=== PATIENT | male | born 1950 | race American Indian/Alaskan Native ===

== ENCOUNTER 2017-09-21 20:17 | Emergency (ER) | payer MEDICARE, OTHER, SELFPAY ==
[2017-09-21 20:34] VITALS: BP 215/98
[2017-09-21] MEDS ORDERED: Morphine 10 MG/ML Syringe IVPUSH ONE (20:53)
--- NOTE | 2017-09-21 20:58 | EDM.PDOC ---
ED HPI GENERAL MEDICAL PROBLEM - General Chief Complaint: Flank Pain Stated Complaint: KIDNEY PAIN Time Seen by Provider: 09/21/17 20:45 Source of Information: Reports: Patient, Family History Limitations: Reports: No Limitations - History of Present Illness INITIAL COMMENTS - FREE TEXT/NARRATIVE: 66-year-old male who takes over 130 mg of morphine daily for chronic pain and ran out of his morphine this morning and has not had a dose for 9 hours. He has worsening lower back pain, feels anxious, feels he can't breathe and has intense right paralumbar pain. He also feels his abdomen is bloated. No nausea or vomiting. right flank Pain Score (Numeric/FACES): 10 - Related Data Allergies Allergy/AdvReac Type Severity Reaction Status Date / Time cimetidine [From Tagamet] Allergy Hallucinati Verified 11/26/16 15:45 ons Home Meds: Home Meds Fenofibrate Nanocrystallized [Fenofibrate] 160 mg PO DAILY 10/08/14 [History] Lisinopril [Lisinopril] 20 mg PO DAILY 10/08/14 [History] Metoprolol Tartrate [Metoprolol Tartrate] 100 mg PO BID 10/08/14 [History] Morphine [MS Contin] 45 mg PO TID 10/08/14 [History] Omeprazole [Prilosec] 1 tab PO DAILY 10/08/14 [History] Triamterene/Hydrochlorothiazid [Triamterene-HCTZ 37.5-25 MG] 1 tab PO DAILY [History] metFORMIN [Glucophage] 500 mg PO BID 10/08/14 [History] Insulin Glargine,Hum.Rec.Anlog [Toujeo Solostar] 25 units SUBCUT BEDTIME [History] oxyCODONE 5 mg PO BEDTIME PRN 09/21/17 [History] Past Medical History Cardiovascular History: Reports: High Cholesterol, Hypertension Gastrointestinal History: Reports: Cholelithiasis Musculoskeletal History: Reports: Back Pain, Chronic, RA Psychiatric History: Reports: Addiction, Psych Hospitalization(s) Endocrine/Metabolic History: Reports: Diabetes, Type II - Past Surgical History HEENT Surgical History: Reports: Naso-Sinus Surgery GI Surgical History: Reports: Cholecystectomy, Hernia, Abdominal, Hernia Repair/ Other, Lysis of Adhesions, Small Bowel Musculoskeletal Surgical History: Reports: Shoulder Surgery Social & Family History - Tobacco Use Smoking Status *Q: Former Smoker Used Tobacco, but Quit: No - Caffeine Use Caffeine Use: Reports: None - Recreational Drug Use Recreational Drug Use: No ED ROS GENERAL - Review of Systems Review Of Systems: See Below Constitutional: Denies: Fever, Chills Respiratory: Reports: Pleuritic Chest Pain Cardiovascular: Denies: Chest Pain GI/Abdominal: Reports: Distension. Denies: Abdominal Pain : Reports: Flank Pain Musculoskeletal: Reports: Back Pain Skin: Reports: No Symptoms Psychiatric: Reports: Anxiety ED EXAM,LOWER BACK PAIN/INJURY - Physical Exam Exam: See Below Exam Limited By: No Limitations General Appearance: Alert, Mild Distress (Pacing around the room, very uncomfortable) Head: Atraumatic Respiratory/Chest: No Respiratory Distress, Lungs Clear Cardiovascular: Regular Rate, Rhythm GI/Abdominal: Normal Bowel Sounds, Soft Back Exam: Paraspinal Tenderness (Reacts with exquisite tenderness to palpation along the right paralumbar muscles) Course - Vital Signs Last Recorded V/S: Last Vital Signs Temp 98.8 F 09/21/17 20:43 Pulse 97 09/21/17 20:43 Resp 18 09/21/17 20:43 BP 215/98 H 09/21/17 20:43 Pulse Ox 97 09/21/17 20:43 - Orders/Labs/Meds Labs: Laboratory Tests 09/21/17 09/21/17 09/21/17 Range/Units 20:53 20:53 20:53 WBC 8.7 (4.5-11.0) K/uL RBC 5.77 (4.30-5.90) M/uL Hgb 13.4 (12.0-15.0) g/dL Hct 41.8 (40.0-54.0) % MCV 72 L (80-98) fL MCH 23 L (27-31) pg MCHC 32 (32-36) % Plt Count 311 (150-400) K/uL Neut % (Auto) 71 H (36-66) % Lymph % (Auto) 23 L (24-44) % [place] % (Auto) 5 (2-6) % Eos % (Auto) 1 L (2-4) % Baso % (Auto) 0 (0-1) % Sodium 134 L (140-148) mmol/L Potassium 3.9 (3.6-5.2) mmol/L Chloride 98 L (100-108) mmol/L Carbon Dioxide 28 (21-32) mmol/L Anion Gap 11.9 (5.0-14.0) mmol/L BUN 10 (7-18) mg/dL Creatinine 0.8 (0.8-1.3) mg/dL Est Cr Clr Drug Dosing 91.25 mL/min Estimated GFR (MDRD) > 60 (>60) Glucose 288 H (74-106) mg/dL Calcium 9.7 (8.5-10.1) mg/dL Total Bilirubin 0.4 (0.2-1.0) mg/dL AST 29 (15-37) U/L ALT 41 (12-78) U/L Alkaline Phosphatase 86 (46-116) U/L Total Protein 7.7 (6.4-8.2) g/dL Albumin 2.9 L (3.4-5.0) g/dL Globulin 4.8 H (2.3-3.5) g/dL Albumin/Globulin Ratio 0.6 L (1.2-2.2) Urine Color Yellow Urine Appearance Clear Urine pH 6.0 (4.5-8.0) Ur Specific [place] 1.020 (1.008-1.030) Urine Protein 100 H (NEGATIVE) mg/dL Urine Glucose (UA) 1000 H (NEGATIVE) mg/dL Urine Ketones Negative (NEGATIVE) mg/dL Urine Occult Blood Negative (NEGATIVE) Urine Nitrite Negative (NEGAITVE) Urine Bilirubin Negative (NEGATIVE) Urine Urobilinogen Normal (NORMAL) mg/dL Ur Leukocyte Esterase Negative (NEGATIVE) Urine RBC 0-5 (0-5) Urine WBC 0-5 (0-5) Ur Epithelial Cells Rare Amorphous Sediment Few Urine Bacteria Rare Urine Mucus Few Meds: Medications Discontinued Medications Generic Name Dose Route Start Last Admin Trade Name Jaimeq PRN Reason Stop Dose Admin Morphine Sulfate 5 mg 09/21/17 20:53 09/21/17 21:00 Morphine IVPUSH 09/21/17 20:54 5 mg ONETIME ONE Administration Morphine Sulfate 15 mg 09/21/17 21:51 09/21/17 22:06 Ms Contin PO 09/21/17 21:52 15 mg ONETIME ONE Administration Morphine Sulfate 15 mg 09/21/17 21:52 09/21/17 22:06 Ms Contin PO 09/21/17 21:53 15 mg ONETIME ONE Administration - Re-Assessments/Exams Free Text/Narrative Re-Assessment/Exam: 09/21/17 21:54 Patient admitted that he took his last morphine this morning. Labs were drawn, UA was checked and the patient was given 5 mg of IV morphine. When I came into the room to discuss his labs he appeared calm, still was complaining of some mild back discomfort but only removed. Blood pressure normalized. His glucose is 288, otherwise his labs were very reassuring. I agreed to give the patient 30 mg of extended release morphine that he could take tonight despite him being on a pain contract, and he can contact Dr. Bashir tomorrow to see if he can get his medication filled a day early. Departure - Departure Time of Disposition: 22:08 Disposition: Home, Self-Care 01 Condition: Fair Clinical Impression: Low back pain Qualifiers: Chronicity: acute Back pain laterality: right Sciatica presence: without sciatica Qualified Code(s): M54.5 - Low back pain Opioid dependence Qualifiers: Substance use status: in withdrawal Qualified Code(s): F11.23 - Opioid dependence with withdrawal - Discharge Information Instructions: Back Pain, Adult Referrals: Denny Bashir MD [Primary Care Provider] - Forms: ED Department Discharge Care Plan Goals: Take oral morphine before midnight. Contact your primary provider tomorrow morning about additional pain medications.
[2017-09-21] MEDS ORDERED: Morphine 15 MG Tab.ER PO ONE ×2 (21:51→21:52)
== END 2017-09-21 22:08 | disposition home or self-care (01) ==
LOC: JP.ED 20:17
DX: M54.5 Low back pain (principal); F11.23 Opioid dependence with withdrawal; I10 Essential (primary) hypertension; E78.00 Pure hypercholesterolemia, unspecified; E11.9 Type 2 diabetes mellitus without complications; Z87.891 Personal history of nicotine dependence; Z79.4 Long term (current) use of insulin; Z79.899 Other long term (current) drug therapy; Z88.8 Allergy status to other drugs, medicaments and biological substances
CPT/HCPCS: 36415; 80053; 81001; 85025; 96374; 99284; A9270; J2270

== ENCOUNTER 2017-09-29 12:24 | Observation (INO) | payer MEDICARE ==
[2017-09-29] MEDS ORDERED: Nitroglycerin 0.4 MG Tab.SL SL PRN ×2 (12:35→15:09)
[2017-09-29] MEDS ORDERED: Sodium Chloride 0.9% 10 ML Syringe FLUSH PRN ×2 (12:35→15:09)
[2017-09-29] MEDS ORDERED: Aspirin 81 MG Tab.Chew PO ONE (12:35)
--- NOTE | 2017-09-29 12:38 | EDM.PDOC ---
ED HPI GENERAL MEDICAL PROBLEM - General Stated Complaint: CHEST PRESSURE/PAIN Time Seen by Provider: 09/29/17 12:34 Source of Information: Reports: Patient, RN Notes Reviewed History Limitations: Reports: No Limitations - History of Present Illness INITIAL COMMENTS - FREE TEXT/NARRATIVE: 66-year-old gentleman presents emergency department today with a complaint of chest pain, he states the chest pain started yesterday has progressively gotten worse over the last 24 hours does have pain going into his left arm no shortness of breath no nausea vomiting he was diaphoretic upon presentation does admit to being under a lot of stress Chest Pain Score (Numeric/FACES): 7 - Related Data Allergies Allergy/AdvReac Type Severity Reaction Status Date / Time cimetidine [From [employer]] Allergy Hallucinati Verified 11/26/16 15:45 ons Home Meds: Home Meds Fenofibrate Nanocrystallized [Fenofibrate] 160 mg PO DAILY 10/08/14 [History] Lisinopril [Lisinopril] 20 mg PO DAILY 10/08/14 [History] Metoprolol Tartrate [Metoprolol Tartrate] 100 mg PO BID 10/08/14 [History] Morphine [MS Contin] 45 mg PO TID 10/08/14 [History] Omeprazole [Prilosec] 1 tab PO DAILY 10/08/14 [History] Triamterene/Hydrochlorothiazid [Triamterene-HCTZ 37.5-25 MG] 1 tab PO DAILY [History] metFORMIN [Glucophage] 500 mg PO BID 10/08/14 [History] Insulin Glargine,Hum.Rec.Anlog [Toujeo Solostar] 25 units SUBCUT BEDTIME [History] oxyCODONE 5 mg PO BEDTIME PRN 09/21/17 [History] Past Medical History Cardiovascular History: Reports: High Cholesterol, Hypertension Gastrointestinal History: Reports: Cholelithiasis Musculoskeletal History: Reports: Back Pain, Chronic, RA Psychiatric History: Reports: Addiction, Psych Hospitalization(s) Endocrine/Metabolic History: Reports: Diabetes, Type II - Past Surgical History HEENT Surgical History: Reports: Naso-Sinus Surgery GI Surgical History: Reports: Cholecystectomy, Hernia, Abdominal, Hernia Repair/ Other, Lysis of Adhesions, Small Bowel Musculoskeletal Surgical History: Reports: Shoulder Surgery Social & Family History - Tobacco Use Smoking Status *Q: Former Smoker Used Tobacco, but Quit: No - Caffeine Use Caffeine Use: Reports: None - Recreational Drug Use Recreational Drug Use: No ED ROS GENERAL - Review of Systems Review Of Systems: See Below Constitutional: Reports: Diaphoresis HEENT: Reports: No Symptoms Respiratory: Reports: No Symptoms Cardiovascular: Reports: Chest Pain GI/Abdominal: Reports: No Symptoms : Reports: No Symptoms Musculoskeletal: Reports: No Symptoms Skin: Reports: No Symptoms Neurological: Reports: No Symptoms ED EXAM, GENERAL - Physical Exam Exam: See Below Free Text/Narrative:: General: Male, not in any distress, alert and oriented x3 HEENT: head is atraumatic normocephalic, eyes pupils equal round reactive to light, sclera clear no conjunctivitis appreciated. Ears tympanic membranes clear and goncalves landmarks and light reflex are present bilaterally canals are clear. Nose no septal deviation, nares are clear, no blood present. Mouth mucosa is moist and pink no erythema or exudate noted in soft palate, tongue is midline uvula is midline, dentition is intact. Neck: Supple no thyromegaly no tracheal deviation. Nodes: Cervical nodes subclavicular nodes nontender no palpable lymphadenopathy noted. Lungs: clear to auscultation bilaterally with symmetrical respirations, no adventitious noise appreciated. CV: Regular rate and rhythm S1 and S2 appreciated no murmurs rubs or gallops noted. Abdomen: Soft, obese, nontender, no palpable masses or organomegaly appreciated , no distention no guarding bowel sounds are present, midline laparotomy scar is clean dry and intact]. Neuro: Cranial nerves II through XII grossly intact Skin: Warm and dry, intact Extremities: No lower extremity edema appreciated, Course - Vital Signs Last Recorded V/S: Last Vital Signs Temp 97.3 F 09/29/17 12:46 Pulse 67 09/29/17 12:57 Resp 16 09/29/17 12:57 BP 184/76 H 09/29/17 12:57 Pulse Ox 99 09/29/17 12:57 - Orders/Labs/Meds Orders: Active Orders 24 hr Category Date Time Status Cardiac Monitoring [RC] .As Directed Care 09/29/17 12:35 Active EKG Documentation Completion [RC] ASDIRECTED Care 09/29/17 12:36 Active Peripheral IV Care [RC] . DIRECTED Care 09/29/17 12:36 Active Chest 1V Frontal [CR] Stat Exams 09/29/17 12:36 Taken Nitroglycerin [Nitrostat] Med 09/29/17 12:35 Active 0.4 mg SL Q5M PRN Sodium Chloride 0.9% [Saline Flush] Med 09/29/17 12:35 Active 10 ml FLUSH ASDIRECTED PRN Peripheral IV Insertion Adult [OM.PC] Stat Oth 09/29/17 12:35 Ordered Saline Lock Insert [OM.PC] Stat Oth 09/29/17 12:35 Ordered EKG 12 Lead [EK] Stat Ther 09/29/17 12:36 Ordered Medication Orders Nitroglycerin (Nitrostat) 0.4 mg SL Q5M PRN PRN Reason: Chest Pain Stop: 09/30/17 12:36 Last Admin: 09/29/17 12:42 Dose: 0.4 mg Sodium Chloride (Saline Flush) 10 ml FLUSH ASDIRECTED PRN PRN Reason: Keep Vein Open Last Admin: 09/29/17 12:43 Dose: 10 ml Labs: Laboratory Tests 09/29/17 09/29/17 Range/Units 12:40 12:40 WBC 7.4 (4.5-11.0) K/uL RBC 5.65 (4.30-5.90) M/uL Hgb 13.0 (12.0-15.0) g/dL Hct 41.3 (40.0-54.0) % MCV 73 L (80-98) fL MCH 23 L (27-31) pg MCHC 32 (32-36) % Plt Count 258 (150-400) K/uL Neut % (Auto) 66 (36-66) % Lymph % (Auto) 27 (24-44) % [place] % (Auto) 6 (2-6) % Eos % (Auto) 2 (2-4) % Baso % (Auto) 0 (0-1) % Sodium 135 L (140-148) mmol/L Potassium 4.4 (3.6-5.2) mmol/L Chloride 97 L (100-108) mmol/L Carbon Dioxide 30 (21-32) mmol/L Anion Gap 12.4 (5.0-14.0) mmol/L BUN 15 (7-18) mg/dL Creatinine 0.8 (0.8-1.3) mg/dL Est Cr Clr Drug Dosing 91.25 mL/min Estimated GFR (MDRD) > 60 (>60) Glucose 334 H (74-106) mg/dL Calcium 9.1 (8.5-10.1) mg/dL Total Bilirubin 0.3 (0.2-1.0) mg/dL AST 27 (15-37) U/L ALT 43 (12-78) U/L Alkaline Phosphatase 80 (46-116) U/L Troponin I < 0.017 (0.000-0.056) ng/mL Total Protein 7.0 (6.4-8.2) g/dL Albumin 3.4 (3.4-5.0) g/dL Globulin 3.6 H (2.3-3.5) g/dL Albumin/Globulin Ratio 0.9 L (1.2-2.2) Meds: Medications Generic Name Dose Route Start Last Admin Trade Name Freq PRN Reason Stop Dose Admin Nitroglycerin 0.4 mg 09/29/17 12:35 09/29/17 12:42 Nitrostat SL 09/30/17 12:36 0.4 mg Q5M PRN Administration Chest Pain Sodium Chloride 10 ml 09/29/17 12:35 09/29/17 12:43 Saline Flush FLUSH 10 ml ASDIRECTED PRN Administration Keep Vein Open Discontinued Medications Generic Name Dose Route Start Last Admin Trade Name Fremelva PRN Reason Stop Dose Admin Aspirin 324 mg 09/29/17 12:35 09/29/17 12:42 Aspirin PO 09/29/17 12:36 324 mg ONETIME ONE Administration Lorazepam 1 mg 09/29/17 12:59 09/29/17 13:02 Ativan IVPUSH 09/29/17 13:00 1 mg ONETIME ONE Administration Departure - Departure Time of Disposition: 13:44 Disposition: Admitted As Inpatient 64 Condition: Fair Clinical Impression: Chest pain Qualifiers: Chest pain type: unspecified Qualified Code(s): R07.9 - Chest pain, unspecified Referrals: PCP,None [Primary Care Provider] - - My Orders Last 24 Hours: My Active Orders 09/29/17 12:35 Cardiac Monitoring [RC] .As Directed Nitroglycerin [Nitrostat] 0.4 mg SL Q5M PRN Sodium Chloride 0.9% [Saline Flush] 10 ml FLUSH ASDIRECTED PRN Peripheral IV Insertion Adult [OM.PC] Stat Saline Lock Insert [OM.PC] Stat 09/29/17 12:36 EKG Documentation Completion [RC] ASDIRECTED Peripheral IV Care [RC] . DIRECTED Chest 1V Frontal [CR] Stat EKG 12 Lead [EK] Stat - Assessment/Plan Last 24 Hours: My Active Orders 09/29/17 12:35 Cardiac Monitoring [RC] .As Directed Nitroglycerin [Nitrostat] 0.4 mg SL Q5M PRN Sodium Chloride 0.9% [Saline Flush] 10 ml FLUSH ASDIRECTED PRN Peripheral IV Insertion Adult [OM.PC] Stat Saline Lock Insert [OM.PC] Stat 09/29/17 12:36 EKG Documentation Completion [RC] ASDIRECTED Peripheral IV Care [RC] . DIRECTED Chest 1V Frontal [CR] Stat EKG 12 Lead [EK] Stat Plan: Assessment Acuity = acute Site and laterality = chest pain complicated patient with known history of diabetes mellitus type 2, hypertension and dyslipidemia Etiology = unclear etiology Manifestations = none Location of injury = Home Lab values = CBC unremarkable, sodium low at 135 appears hyponatremia glucose elevated 334 consistent hyperglycemia however corrected sodium is at 139 within normal limits troponin is negative chest x-ray I did review films myself I cannot appreciate any acute process, the official read from radiology is pending , EKG demonstrates normal sinus rhythm there is no atrial enlargement there is no ventricular enlargement there is no axis deviation no T wave inversions I don 't appreciate any ST depressions or elevations no Q waves noted good R wave progression Heart score of 5 Plan Discuss case with hospitalist recreational leader he agreed, and evaluate the patient emergency department for admission Patient was in agreement with the plan all questions were answered, . This note was dictated using [employer] voice recognition software please call with any questions.
[2017-09-29] MEDS ORDERED: LORazepam 2 MG/ML MDV IVPUSH ONE (12:59)
--- NOTE | 2017-09-29 14:14 | CR ---
Mild cardiomegaly. Pulmonary vasculature within normal limits. No evidence for focal consolidation.
--- NOTE | 2017-09-29 14:38 | PCM.HP ---
H&P History of Present Illness - General Date of Service: 09/29/17 Admit Problem/Dx: Admission Diagnosis/Problem Admission Diagnosis/Problem Chest pain Source of Information: Patient, Family, Provider, RN Notes Reviewed History Limitations: Reports: No Limitations - History of Present Illness Initial Comments - Free Text/Narative: Azar is a 66-year-old gentleman who is admitted to observation status through the emergency department for further evaluation and management of chest pain. He reports that he's been under significant stress over the past several months related to his 's cancer diagnosis. Over the past few months his experience symptoms of chest pain when he becomes stressed or agitated. Symptoms seem to be occurring more often but he does admit that he is been under more stress. Pain is described as a sharp spasm of pain occurring in the left upper chest and radiating to the left arm. Intermittent episodes can last up to an hour. He awoke with this pain early this morning at approximately 2 AM and has had ongoing intermittent spasms of pain with an underlying ache in the left upper chest. He does develop diaphoresis with these episodes but denies shortness of breath or nausea. He does exercise regularly and has not noted similar symptoms of pain or discomfort with physical activity. Risk factors for coronary artery disease include type 2 diabetes mellitus, hypertension, and dyslipidemia. He has not smoked cigarettes for 30 years and denies other tobacco use, also denies family history of significant coronary artery disease. Pain did seem to improve when he received sublingual nitroglycerin in the emergency department. Troponin level is normal and EKG shows no acute ST segment changes. He has a calculated HEART score of 4. Chest Pain Score (Numeric/FACES): 7 - Related Data Allergies/Adverse Reactions: Allergies Allergy/AdvReac Type Severity Reaction Status Date / Time cimetidine [From Tagamet] Allergy Hallucinati Verified 11/26/16 15:45 ons Home Medications: Home Meds Fenofibrate Nanocrystallized [Fenofibrate] 160 mg PO DAILY 10/08/14 [History] Lisinopril [Lisinopril] 20 mg PO DAILY 10/08/14 [History] Metoprolol Tartrate [Metoprolol Tartrate] 100 mg PO BID 10/08/14 [History] Morphine [MS Contin] 45 mg PO TID 10/08/14 [History] Omeprazole [Prilosec] 1 tab PO DAILY 10/08/14 [History] Triamterene/Hydrochlorothiazid [Triamterene-HCTZ 37.5-25 MG] 1 tab PO DAILY [History] metFORMIN [Glucophage] 500 mg PO BID 10/08/14 [History] Insulin Glargine,Hum.Rec.Anlog [Toujeo Solostar] 25 units SUBCUT BEDTIME [History] oxyCODONE 5 mg PO BEDTIME PRN 09/21/17 [History] Past Medical History Cardiovascular History: Reports: High Cholesterol, Hypertension Gastrointestinal History: Reports: Cholelithiasis Musculoskeletal History: Reports: Back Pain, Chronic, RA Psychiatric History: Reports: Addiction, Psych Hospitalization(s) Endocrine/Metabolic History: Reports: Diabetes, Type II - Past Surgical History HEENT Surgical History: Reports: Naso-Sinus Surgery GI Surgical History: Reports: Cholecystectomy, Hernia, Abdominal, Hernia Repair/ Other, Lysis of Adhesions, Small Bowel Musculoskeletal Surgical History: Reports: Shoulder Surgery Social & Family History - Tobacco Use Smoking Status *Q: Former Smoker Used Tobacco, but Quit: No - Caffeine Use Caffeine Use: Reports: None - Recreational Drug Use Recreational Drug Use: No H&P Review of Systems - Review of Systems: Review Of Systems: See Below General: Reports: No Symptoms HEENT: Reports: No Symptoms Pulmonary: Reports: No Symptoms Cardiovascular: Reports: Chest Pain. Denies: Palpitations, Dyspnea on Exertion , Orthopnea, PND, Edema, Lightheadedness, Syncope Gastrointestinal: Reports: No Symptoms Genitourinary: Reports: No Symptoms Musculoskeletal: Reports: Back Pain Skin: Reports: No Symptoms Psychiatric: Reports: Depression, Anxiety Neurological: Reports: No Symptoms Hematologic/Lymphatic: Reports: No Symptoms Immunologic: Reports: No Symptoms Exam - Exam Exam: See Below - Vital Signs Vital Signs: Last Vital Signs Temp 97.3 F 09/29/17 12:46 Pulse 67 09/29/17 12:57 Resp 16 09/29/17 12:57 BP 184/76 H 09/29/17 12:57 Pulse Ox 99 09/29/17 12:57 Weight: 272 lb - Exam Quality Assessment: DVT Prophylaxis General: Alert, Oriented, Cooperative, Mild Distress HEENT: Conjunctiva Clear, Hearing Intact, Mucosa Moist & [place], Normal Nasal Septum, Posterior Pharynx Clear, Pupils Equal Neck: Supple, Trachea Midline, +2 Carotid Pulse wo Bruit Lungs: Clear to Auscultation, Normal Respiratory Effort Cardiovascular: Regular Rate, Regular Rhythm, Normal S1, Normal S2. No: Systolic Murmur, Diastolic Murmur GI/Abdominal Exam: Soft, Non-Tender, No Organomegaly, No Distention Back Exam: Normal Inspection, Full Range of Motion Extremities: Non-Tender, No Pedal Edema Skin: Warm, Dry, Intact Neurological: Cranial Nerves Intact, Strength Equal Bilateral, Normal Speech, Normal Tone, Sensation Intact. No: Focal Deficit Neuro Extensive - Mental Status: Alert, Oriented x3, Normal Mood/Affect, Normal Cognition, Memory Intact - Patient Data Lab Results Last 24 hrs: Laboratory Results - last 24 hr 09/29/17 09/29/17 Range/Units 12:40 12:40 WBC 7.4 (4.5-11.0) K/uL RBC 5.65 (4.30-5.90) M/uL Hgb 13.0 (12.0-15.0) g/dL Hct 41.3 (40.0-54.0) % MCV 73 L (80-98) fL MCH 23 L (27-31) pg MCHC 32 (32-36) % Plt Count 258 (150-400) K/uL Neut % (Auto) 66 (36-66) % Lymph % (Auto) 27 (24-44) % [place] % (Auto) 6 (2-6) % Eos % (Auto) 2 (2-4) % Baso % (Auto) 0 (0-1) % Sodium 135 L (140-148) mmol/L Potassium 4.4 (3.6-5.2) mmol/L Chloride 97 L (100-108) mmol/L Carbon Dioxide 30 (21-32) mmol/L Anion Gap 12.4 (5.0-14.0) mmol/L BUN 15 (7-18) mg/dL Creatinine 0.8 (0.8-1.3) mg/dL Est Cr Clr Drug Dosing 91.25 mL/min Estimated GFR (MDRD) > 60 (>60) Glucose 334 H (74-106) mg/dL Calcium 9.1 (8.5-10.1) mg/dL Total Bilirubin 0.3 (0.2-1.0) mg/dL AST 27 (15-37) U/L ALT 43 (12-78) U/L Alkaline Phosphatase 80 (46-116) U/L Troponin I < 0.017 (0.000-0.056) ng/mL Total Protein 7.0 (6.4-8.2) g/dL Albumin 3.4 (3.4-5.0) g/dL Globulin 3.6 H (2.3-3.5) g/dL Albumin/Globulin Ratio 0.9 L (1.2-2.2) Result Diagrams: 09/29/17 12:40 09/29/17 12:40 *Q Meaningful Use (ADM) - VTE *Q VTE Criteria *Q: - VTE Risk Assess *Q Each Risk Factor Represents 1 Point: Obesity ( BMI > 25 kg/m2) Total Score 1 Point Risk Factors: 1 Each Risk Factor Represents 2 Points: Age 60 - 74 Years Total Score 2 Point Risk Factors: 2 Each Risk Factor Represents 3 Points: None Total Score 3 Point Risk Factors: 0 Each Risk Factor Represents 5 Points: None Total Score 5 Point Risk Factors: 0 Venous Thromboembolism Risk Factor Score *Q: 3 - Stroke *Q Stroke Criteria *Q: - AMI *Q AMI Criteria *Q: Problem List Initiated/Reviewed/Updated: Yes Orders Last 24hrs: Active Orders 24 hr Category Date Time Status Patient Status Manage Transfer [TRANSFER] Routine ADT 09/29/17 14:19 Ordered Cardiac Monitoring [RC] .As Directed Care 09/29/17 12:35 Active EKG Documentation Completion [RC] ASDIRECTED Care 09/29/17 12:36 Active Peripheral IV Care [RC] . DIRECTED Care 09/29/17 12:36 Active Nitroglycerin [Nitrostat] Med 09/29/17 12:35 Active 0.4 mg SL Q5M PRN Sodium Chloride 0.9% [Saline Flush] Med 09/29/17 12:35 Active 10 ml FLUSH ASDIRECTED PRN Peripheral IV Insertion Adult [OM.PC] Stat Oth 09/29/17 12:35 Ordered Saline Lock Insert [OM.PC] Stat Oth 09/29/17 12:35 Ordered Resuscitation Status Routine Resus Stat 09/29/17 14:22 Ordered EKG 12 Lead [EK] Stat Ther 09/29/17 12:36 Ordered Medication Orders Nitroglycerin (Nitrostat) 0.4 mg SL Q5M PRN PRN Reason: Chest Pain Stop: 09/30/17 12:36 Last Admin: 09/29/17 12:42 Dose: 0.4 mg Sodium Chloride (Saline Flush) 10 ml FLUSH ASDIRECTED PRN PRN Reason: Keep Vein Open Last Admin: 09/29/17 12:43 Dose: 10 ml Assessment/Plan Comment:: ASSESSMENT AND PLAN CHEST PAIN-HEART score of 4, symptoms seem to be related to significant stress and anxiety. He denies symptoms associated with physical exertion and reports that he does exercise regularly. Risk factors for coronary artery disease include type 2 diabetes mellitus, hypertension, and dyslipidemia. -Serial troponin levels to rule out myocardial infarction -Outpatient Cardiolite study as we will not be able to schedule this given the upcoming weekend ANXIETY-he has significant stress in his life related to his 's terminal cancer and behavior of 2 adult sons that live with him. -Citalopram 20 mg by mouth daily -Lorazepam 0.5 mg by mouth every 4 hours as needed HYPERTENSION-seem to be related to significant anxiety on admission, but has improved during hospital stay -Continue outpatient regimen for hypertension -Monitor blood pressure closely during hospital stay TYPE 2 DIABETES MELLITUS -Continue outpatient therapy with long-acting insulin and metformin -4 times a day glucometers -Low-dose sliding scale NovoLog MAINTENANCE ISSUES -DVT prophylaxis; Lovenox 40 mg subcutaneous daily -GI prophylaxis; continue outpatient PPI therapy -Love catheter; not indicated -Nutrition; consistent carb diet -Nicotine dependence; not required CODE STATUS-FULL CODE ADMISSION STATUS-this patient will be admitted to observation status, expect no more than a one night hospital stay for evaluation and management of problems as outlined above. DISPOSITION-anticipate discharge to home after the hospital stay. PRIMARY CARE PROVIDER-Dr. Bashir
[2017-09-29] MEDS ORDERED: Docusate Sodium 100 MG Cap PO PRN (15:09)
[2017-09-29] MEDS ORDERED: Ondansetron 4 MG/2 ML SDV IV PRN (15:09)
[2017-09-29] MEDS ORDERED: oxyCODONE 5 MG Tab PO PRN ×2 (15:09)
[2017-09-29] MEDS ORDERED: 50% Dextrose in Water 50 ML Syringe IV PRN (15:09)
[2017-09-29] MEDS ORDERED: Acetaminophen 325 MG Tab PO PRN (15:09)
[2017-09-29] MEDS ORDERED: Glucose Gel 15 GM in 37.5 GM Tube PO PRN (15:09)
[2017-09-29] MEDS ORDERED: Magnesium Hydroxide 400 MG/5 ML Susp 30 ML Cup PO PRN (15:09)
[2017-09-29] MEDS ORDERED: Polyethylene Glycol 3350 Powder 17 GM Packet PO PRN (15:09)
[2017-09-29] MEDS ORDERED: Melatonin 3 MG Tab PO PRN (15:09)
[2017-09-29] MEDS ORDERED: Enoxaparin 40 MG/0.4 ML Syringe SUBCUT SCH (16:00)
[2017-09-29] MEDS: LORazepam 0.5 MG Tab PO PRN ×2 (16:14→21:02)
[2017-09-29] MEDS: Citalopram 20 MG Tab PO SCH (16:54)
[2017-09-29] MEDS ORDERED: METFORMIN 500 MG PO SCH ×2 (17:00)
[2017-09-29] MEDS: Insulin Aspart 100 Units/ML 3 ML Pen SUBCUT SCH ×2 (17:31→21:04)
[2017-09-29] MEDS: Morphine 15 MG Tab.ER PO SCH (19:34)
[2017-09-29] MEDS ORDERED: Insulin Detemir 100 Units/ML 3 ML Pen SUBCUT SCH (21:00)
[2017-09-29] MEDS: METOPROLOL TARTRATE 100 MG PO SCH (21:01)
[2017-09-30] MEDS: Morphine 15 MG Tab.ER PO SCH ×2 (00:07→08:48)
[2017-09-30] MEDS: LORazepam 0.5 MG Tab PO PRN ×2 (00:44→09:03)
[2017-09-30] MEDS: Insulin Aspart 100 Units/ML 3 ML Pen SUBCUT SCH (06:50)
[2017-09-30] MEDS ORDERED: Pantoprazole 40 MG Tab.CR PO SCH (07:30)
[2017-09-30] MEDS ORDERED: METFORMIN 500 MG PO SCH (08:00)
[2017-09-30] MEDS: Citalopram 20 MG Tab PO SCH (08:32)
[2017-09-30] MEDS: METOPROLOL TARTRATE 100 MG PO SCH (08:33)
[2017-09-30 08:34] VITALS: BP 163/69
[2017-09-30] MEDS ORDERED: TRIAMTERENE PO SCH (09:00)
[2017-09-30] MEDS ORDERED: Aspirin 325 MG Tab.EC PO SCH (09:00)
[2017-09-30] MEDS ORDERED: LISINOPRIL 20 MG PO SCH (09:00)
[2017-09-30] MEDS ORDERED: HYDROCHLOROTHIAZIDE PO SCH (09:00)
[2017-09-30] MEDS ORDERED: FENOFIBRATE 160 MG PO SCH (09:00)
--- NOTE | 2017-09-30 09:14 | PCM.DCSUM1 ---
Discharge Summary - Hospital Course Brief History: Azar is a 66-year-old gentleman who was admitted to observation status through the emergency department for evaluation and management of chest pain. - Discharge Data Discharge Date: 09/30/17 Discharge Disposition: Home, Self-Care 01 Condition: Fair - Discharge Diagnosis/Problem(s) (1) Anxiety SNOMED Code(s): 95838878 ICD Code: F41.9 - ANXIETY DISORDER, UNSPECIFIED Status: Acute Current Visit: Yes (2) Chest pain SNOMED Code(s): 53325226 ICD Code: R07.9 - CHEST PAIN, UNSPECIFIED Status: Acute Current Visit: Yes Qualifiers: Chest pain type: unspecified Qualified Code(s): R07.9 - Chest pain, unspecified (3) Type 2 diabetes mellitus SNOMED Code(s): 50597911 ICD Code: E11.9 - TYPE 2 DIABETES MELLITUS WITHOUT COMPLICATIONS Status: Acute Current Visit: Yes - Patient Summary/Data Hospital Course: Azar is a 66-year-old gentleman who is admitted through the emergency department observation status for evaluation of chest pain. He reports history over the past few months of episodes of left-sided chest pain related to psychological stress. There were no symptoms related to activity or exertion. On the day of admission woke early in the morning with left-sided chest pain radiating to left arm pain would occur in spasms that were more intense and then at baseline there was a low level of left chest ache. He noted no precipitating or relieving factors other than stress. He has risk factors for coronary artery disease including type 2 diabetes mellitus, hypertension, and dyslipidemia. HEART score was 4, initial EKG and troponin level showed no acute changes. He was admitted to observation status, serial troponin levels remained within normal range. He had no further symptoms of significant chest pain through the rest of his hospital stay. Exercise Cardiolite study will be scheduled as an outpatient for October 02. He will be discharged home if he notes recurrent severe chest pain or other symptoms we'll repeat present to the emergency department for further evaluation. Activity will be as tolerated and he will resume his usual diet. Follow-up appointment will be scheduled with his primary care provider Dr. Bashir within one week. Because of symptoms of anxiety and stress he will be discharged on citalopram 20 mg by mouth daily and lorazepam 0.5 mg 4 times a day when necessary. - Patient Instructions Diet: Diabetic Diet Activity: As Tolerated Other/Special Instructions: Please schedule follow-up appointment with Dr. Bashir within one week. Schedule exercise Cardiolite study for October 02. - Discharge Plan Prescriptions/Med Rec: Aspirin 81 mg PO DAILY #100 tab.chew Citalopram [Citalopram HBr] 20 mg PO DAILY #30 tablet LORazepam [Ativan] 0.5 mg PO Q4H PRN #12 tablet PRN Reason: Anxiety Home Medications: Home Meds Fenofibrate Nanocrystallized [Fenofibrate] 160 mg PO DAILY 10/08/14 [History] Lisinopril 20 mg PO DAILY 10/08/14 [History] Metoprolol Tartrate 100 mg PO BID 10/08/14 [History] Morphine [MS Contin] 45 mg PO TID 10/08/14 [History] Omeprazole [Prilosec] 1 tab PO DAILY 10/08/14 [History] Triamterene/Hydrochlorothiazid [Triamterene-HCTZ 37.5-25 MG] 1 tab PO DAILY [History] Insulin Glargine,Hum.Rec.Anlog [Toujeo Solostar] 25 units SUBCUT BEDTIME [History] oxyCODONE 5 mg PO BEDTIME PRN 09/21/17 [History] metFORMIN [Glucophage] 1,000 mg PO WITHDINNER 09/29/17 [History] metFORMIN [Glucophage] 500 mg PO ACBREAKFAST 09/29/17 [History] Aspirin 81 mg PO DAILY #100 tab.chew 09/30/17 [Rx] Citalopram [Citalopram HBr] 20 mg PO DAILY #30 tablet 09/30/17 [Rx] LORazepam [Ativan] 0.5 mg PO Q4H PRN #12 tablet 09/30/17 [Rx] Referrals: Denny Bashir MD [Physician] - - Patient Data Vitals - Most Recent: Last Vital Signs Temp 96.8 F 09/30/17 04:00 Pulse 65 09/29/17 18:00 Resp 16 09/30/17 06:00 BP 163/69 H 09/30/17 08:34 Pulse Ox 95 09/30/17 06:00 Weight - Most Recent: 275 lb 6.4 oz I&O - Last 24 hours: Intake & Output 09/29/17 09/30/17 09/30/17 22:59 06:59 14:59 Intake Total 240 Output Total 200 Balance 40 Lab Results - Last 24 hrs: Laboratory Results - last 24 hr 09/29/17 09/30/17 Range/Units 17:50 00:01 Troponin I < 0.017 < 0.017 (0.000-0.056) ng/mL Med Orders - Current: Current Medications Acetaminophen (Tylenol) 650 mg PO Q4H PRN PRN Reason: Pain (Mild 1-3)/fever Aspirin (Ecotrin) 325 mg PO DAILY [facility] Last Admin: 09/30/17 08:32 Dose: 325 mg Citalopram Hydrobromide (Celexa) 20 mg PO DAILY [facility] Last Admin: 09/30/17 08:32 Dose: 20 mg Dextrose (Glutose 15) 15 gm PO ONETIME PRN PRN Reason: Hypoglycemia Dextrose/Water (Dextrose 50% In Water) 50 ml IV ONETIME PRN PRN Reason: Hypoglycemia Docusate Sodium (Colace) 100 mg PO BID PRN PRN Reason: Constipation Enoxaparin Sodium (Lovenox) 40 mg SUBCUT Q24H [facility] Last Admin: 09/29/17 16:43 Dose: 40 mg Insulin Aspart (Novolog) 0 unit SUBCUT QIDACANDBED [facility] PRN Reason: Protocol Last Admin: 09/30/17 06:50 Dose: 2 units Insulin Detemir (Levemir) 25 unit SUBCUT BEDTIME [facility] Last Admin: 09/29/17 21:03 Dose: 25 units Lisinopril (Prinivil) 20 mg PO DAILY [facility] Last Admin: 09/30/17 08:34 Dose: 20 mg Lorazepam (Ativan) 0.5 mg PO Q4H PRN PRN Reason: Anxiety Last Admin: 09/30/17 09:03 Dose: 0.5 mg Magnesium Hydroxide (Milk Of Magnesia) 30 ml PO Q12H PRN PRN Reason: Constipation Melatonin (Melatonin) 9 mg PO BEDTIME PRN PRN Reason: Insomnia Metformin HCl (Glucophage) 500 mg PO DAILY@0800 [facility] Last Admin: 09/30/17 08:31 Dose: 500 mg Metformin HCl (Glucophage) 1,000 mg PO WITHDINNER [facility] Last Admin: 09/29/17 17:27 Dose: 1,000 mg Morphine Sulfate (Ms Contin) 45 mg PO TID [facility] Last Admin: 09/30/17 08:48 Dose: 45 mg Nitroglycerin (Nitrostat) 0.4 mg SL Q5M PRN PRN Reason: Chest Pain Fenofibrate 160 Mg ( (Pom)) 0 mg PO DAILY [facility] Last Admin: 09/30/17 08:32 Dose: 1 mg Metoprolol Tartrate (100 Mg (Pom)) 0 mg PO BID [facility] Last Admin: 09/30/17 08:33 Dose: 100 mg Ondansetron HCl (Zofran) 4 mg IV Q4H PRN PRN Reason: Nausea/Vomiting Oxycodone HCl (Oxycodone) 5 mg PO BEDTIME PRN PRN Reason: Pain Last Admin: 09/29/17 21:02 Dose: 5 mg Oxycodone HCl (Oxycodone) 5 mg PO Q4H PRN PRN Reason: Pain (moderate 4-6) Pantoprazole Sodium (Protonix) 40 mg PO ACBREAKFAST [facility] Last Admin: 09/30/17 08:31 Dose: 40 mg Polyethylene Glycol (Miralax) 17 gm PO DAILY PRN PRN Reason: Constipation Sodium Chloride (Saline Flush) 10 ml FLUSH ASDIRECTED PRN PRN Reason: Keep Vein Open Triamterene/HCTZ (Maxzide 25-37.5 Mg) 1 each PO DAILY [facility] Last Admin: 09/30/17 08:33 Dose: 1 each Discontinued Medications Aspirin (Aspirin) 324 mg PO ONETIME ONE Stop: 09/29/17 12:36 Last Admin: 09/29/17 12:42 Dose: 324 mg Lorazepam (Ativan) 1 mg IVPUSH ONETIME ONE Stop: 09/29/17 13:00 Last Admin: 09/29/17 13:02 Dose: 1 mg Metformin HCl (Glucophage) 500 mg PO BIDMEALS [facility] Nitroglycerin (Nitrostat) 0.4 mg SL Q5M PRN PRN Reason: Chest Pain Stop: 09/30/17 12:36 Last Admin: 09/29/17 12:42 Dose: 0.4 mg Sodium Chloride (Saline Flush) 10 ml FLUSH ASDIRECTED PRN PRN Reason: Keep Vein Open Last Admin: 09/29/17 12:43 Dose: 10 ml *Q Meaningful Use (DIS) - VTE *Q VTE Criteria *Q: - Stroke *Q Stroke Criteria *Q: - AMI *Q AMI Criteria *Q:
== END 2017-09-30 09:40 | disposition home or self-care (01) ==
LOC: JP.ED 12:24 → JP.ICU 14:19
PROVIDERS: ADMIT Hospitalist; ATTEND Hospitalist
DX: R07.9 Chest pain, unspecified (principal); F41.9 Anxiety disorder, unspecified; E11.9 Type 2 diabetes mellitus without complications; Z79.82 Long term (current) use of aspirin; Z79.84 Long term (current) use of oral hypoglycemic drugs; Z79.899 Other long term (current) drug therapy; Z88.8 Allergy status to other drugs, medicaments and biological substances; I10 Essential (primary) hypertension; E78.00 Pure hypercholesterolemia, unspecified; Z90.49 Acquired absence of other specified parts of digestive tract; Z87.891 Personal history of nicotine dependence
CPT/HCPCS: 36415; 71010; 80053; 82962; 84484; 85025; 93005; 96372; 96374; 99285; A9270; G0378; J1650; J2060; J7050; 93010; 99217; 99220; 99284

== ENCOUNTER 2019-04-24 01:15 | Emergency (ER) | payer MEDICARE, MEDICAID ==
[2019-04-24 01:28] VITALS: PULSE 61
--- NOTE | 2019-04-24 01:52 | EDM.PDOC ---
ED HPI GENERAL MEDICAL PROBLEM - General Chief Complaint: ENT Problem Stated Complaint: NOSE BLEED ON OFF 3 DAYS Time Seen by Provider: 04/24/19 01:35 Source of Information: Reports: Patient, Family History Limitations: Reports: No Limitations - History of Present Illness INITIAL COMMENTS - FREE TEXT/NARRATIVE: 68-year-old male with right sided facial pressure, discomfort, and intermittent nosebleeds for the past several days. No fevers or chills. No cough. He has been hypertensive for several weeks because he is under a lot of stress. He is concerned he has a sinus infection causing intermittent nosebleeds Onset: Unknown/Unsure - Related Data Allergies Allergy/AdvReac Type Severity Reaction Status Date / Time cimetidine [From Tagamet] Allergy Hallucinati Verified 04/24/19 01:28 ons Home Meds: Home Meds Lisinopril 20 mg PO DAILY 10/08/14 [History] Metoprolol Tartrate 100 mg PO BID 10/08/14 [History] Morphine [MS Contin] 45 mg PO BEDTIME 10/08/14 [History] Omeprazole [Prilosec] 1 tab PO DAILY 10/08/14 [History] Triamterene/Hydrochlorothiazid [Triamterene-HCTZ 37.5-25 MG] 1 tab PO DAILY [History] Insulin Glargine,Hum.Rec.Anlog [Toujeo Solostar] 35 units SUBCUT DAILY 09/21/17 [History] metFORMIN [Glucophage] 1,000 mg PO WITHDINNER 09/29/17 [History] metFORMIN [Glucophage] 500 mg PO ACBREAKFAST 09/29/17 [History] Aspirin 81 mg PO DAILY #100 tab.chew 09/30/17 [Rx] Azelastine [Astelin Nasal Soln] 2 inhalation GABRIELA BID 07/31/18 [History] Fenofibrate 160 mg PO DAILY 07/31/18 [History] LORazepam [Ativan] 0.5 mg PO TID 07/31/18 [History] Tadalafil [Cialis] 20 mg PO ASDIRECTED 07/31/18 [History] Multivitamin [Multiple Vitamins] 1 each PO DAILY 08/01/18 [History] Past Medical History HEENT History: Reports: None, Sinusitis Cardiovascular History: Reports: High Cholesterol, Hypertension Gastrointestinal History: Reports: GERD Other Genitourinary History: ED Musculoskeletal History: Reports: Back Pain, Chronic, RA, Other (See Below) Other Musculoskeletal History: SHOULDER PAIN Psychiatric History: Reports: Addiction, Psych Hospitalization(s) Endocrine/Metabolic History: Reports: Diabetes, Type II Hematologic History: Reports: Blood Transfusion(s) - Infectious Disease History Infectious Disease History: Reports: Chicken Pox, Measles, Mumps - Past Surgical History HEENT Surgical History: Reports: Naso-Sinus Surgery Cardiovascular Surgical History: Reports: None GI Surgical History: Reports: Cholecystectomy, Colonoscopy, Hernia, Abdominal, Hernia Repair/Other, Lysis of Adhesions, Small Bowel Musculoskeletal Surgical History: Reports: None Social & Family History - Tobacco Use Smoking Status *Q: Former Smoker Used Tobacco, but Quit: Yes Month/Year Tobacco Last Used: 30 years - Caffeine Use Caffeine Use: Reports: None - Recreational Drug Use Recreational Drug Use: No ED ROS ENT - Review of Systems Review Of Systems: See Below Constitutional: Denies: Fever, Chills, Malaise HEENT: Reports: Nosebleed, Sinus Problem (On the right side, pressure) Respiratory: Denies: Shortness of Breath, Cough GI/Abdominal: Reports: Nausea (Nausea when he has his nosebleeds). Denies: Vomiting Skin: Reports: No Symptoms Neurological: Denies: Headache ED EXAM, ENT - Physical Exam Exam: See Below Exam Limited By: No Limitations General Appearance: Alert, No Apparent Distress Ears: Normal TMs Nose: Other (Some irritation of the septum on the right side but no obvious source of bleeding.) Head: Facial Tenderness ( He does have some discomfort with percussion especially of the right maxillary sinus area) Neck: Supple Respiratory/Chest: No Respiratory Distress, Lungs Clear Course - Vital Signs Last Recorded V/S: Last Vital Signs Temp 98.3 F 04/24/19 01:26 Pulse 61 04/24/19 01:36 Resp 18 04/24/19 01:36 BP 177/65 H 04/24/19 02:02 Pulse Ox 98 04/24/19 01:36 - Re-Assessments/Exams Free Text/Narrative Re-Assessment/Exam: 04/24/19 01:50 We'll try a course of amoxicillin 500 mg 3 times a day, also supplied with a nasal pincher to supply external pressure with any recurring nosebleeds. He is to avoid extra sodium intake and discussed his blood pressure with his primary provider within the next 7-10 days. Departure - Departure Time of Disposition: 02:02 Disposition: Home, Self-Care 01 Condition: Good Clinical Impression: Epistaxis Sinusitis Qualifiers: Sinusitis location: maxillary Chronicity: acute Recurrence: non-recurrent Qualified Code(s): J01.00 - Acute maxillary sinusitis, unspecified - Discharge Information Instructions: Sinusitis, Adult, [id number] Referrals: Denny Bashir MD [Primary Care Provider] - Forms: ED Department Discharge Care Plan Goals: Avoid extra sodium intake, take amoxicillin for 10 days as prescribed and use external pressure for recurring nosebleeds. Recheck with Dr. Bashir in the next week to discuss blood pressure medications, and return if bleeding recurs and can't be stopped with pressure.
[2019-04-24 02:02] VITALS: BP 177/65
== END 2019-04-24 02:03 | disposition home or self-care (01) ==
LOC: JP.ED 01:15
DX: R04.0 Epistaxis (principal); J01.00 Acute maxillary sinusitis, unspecified; E78.00 Pure hypercholesterolemia, unspecified; I10 Essential (primary) hypertension; K21.9 Gastro-esophageal reflux disease without esophagitis; E11.9 Type 2 diabetes mellitus without complications; Z88.8 Allergy status to other drugs, medicaments and biological substances; Z79.899 Other long term (current) drug therapy; Z79.4 Long term (current) use of insulin; Z79.82 Long term (current) use of aspirin; Z87.891 Personal history of nicotine dependence
CPT/HCPCS: 99282; 99283